=== PATIENT | female | born 1940 | race Caucasian/White ===

== ENCOUNTER 2017-05-02 01:04 | Emergency (ER) | payer MEDICARE ==
[2017-05-02] MEDS ORDERED: Nitroglycerin 0.4 MG Tab.SL SL PRN (01:15)
--- NOTE | 2017-05-02 01:17 | EDM.PDOC ---
ED HPI GENERAL MEDICAL PROBLEM - General Chief Complaint: Chest Pain Stated Complaint: MEDICAL VIA [facility] Time Seen by Provider: 05/02/17 01:15 Source of Information: Reports: Patient, RN Notes Reviewed History Limitations: Reports: No Limitations - History of Present Illness INITIAL COMMENTS - FREE TEXT/NARRATIVE: 76-year-old female presents emergency department today via EMS services for burning in the chest, she states she went to bed tonight and awoke with this burning in the chest EMS services were called she did receive aspirin in route. She states it's starting to improve she does admit to eating fried chicken before going to bed tonight. Positive cardiac history with coronary artery disease and vessel grafting 1 history of non-STEMI as well 2013 Upper Mid-Anterior Chest Pain Score (Numeric/FACES): 3 - Related Data Allergies Allergy/AdvReac Type Severity Reaction Status Date / Time Sulfa (Sulfonamide Allergy Intermediate Redness Verified 12/31/15 02:17 Antibiotics) Home Meds: Home Meds Sertraline HCl [Sertraline HCl] 25 mg PO DAILY 05/12/13 [History] Aspirin 325 mg PO DAILY 12/01/13 [History] Diazepam [Valium] 5 mg PO DAILY PRN 12/01/13 [History] Gemfibrozil [Lopid] 600 mg PO DAILY 12/01/13 [History] Metoprolol Succinate [Toprol XL 100mg] 100 mg PO DAILY 12/01/13 [History] amLODIPine [Norvasc] 5 mg PO DAILY 12/01/13 [History] Past Medical History HEENT History: Reports: Impaired Vision Cardiovascular History: Reports: Bypass (ROSARIO to LAD), CAD, Heart Valve Replacement, High Cholesterol, Hypertension, [place], Other (See Below) Other Cardiovascular History: rheumatic fever Musculoskeletal History: Reports: Osteoarthritis Neurological History: Reports: Migraines Psychiatric History: Reports: Anxiety, Depression, Other (See Below) Other Psychiatric History: ragile x syndrome Hematologic History: Reports: Blood Transfusion(s) - Infectious Disease History Infectious Disease History: Reports: Chicken Pox, Measles, Mumps, Shingles - Past Surgical History Cardiovascular Surgical History: Reports: Valve Replacement Social & Family History - Tobacco Use Smoking Status *Q: Former Smoker Years of Tobacco use: 37 Packs/Tins Daily: 0.5 Used Tobacco, but Quit: Yes Month Tobacco Last Used: September Second Hand Smoke Exposure: No - Caffeine Use Caffeine Use: Reports: Coffee, Soda - Alcohol Use Days Per Week of Alcohol Use: 0 - Recreational Drug Use Recreational Drug Use: No ED ROS GENERAL - Review of Systems Review Of Systems: See Below Constitutional: Reports: No Symptoms HEENT: Reports: No Symptoms Respiratory: Reports: No Symptoms Cardiovascular: Reports: Chest Pain GI/Abdominal: Reports: No Symptoms : Reports: No Symptoms Musculoskeletal: Reports: No Symptoms Skin: Reports: No Symptoms ED EXAM, GENERAL - Physical Exam Exam: See Below Free Text/Narrative:: General: Female, not in any distress, alert and oriented x3 HEENT: head is atraumatic normocephalic, eyes pupils equal round reactive to light, sclera clear no conjunctivitis appreciated. Ears tympanic membranes clear and dorsey landmarks and light reflex are present bilaterally canals are clear. Nose no septal deviation, nares are clear, no blood present. Mouth mucosa is moist and pink no erythema or exudate noted in soft palate, tongue is midline uvula is midline, dentition is intact. Neck: Supple no thyromegaly no tracheal deviation. Nodes: Cervical nodes subclavicular nodes nontender no palpable lymphadenopathy noted. Lungs: clear to auscultation bilaterally with symmetrical respirations, no adventitious noise appreciated. CV: Regular rate and rhythm S1 and S2 appreciated no murmurs rubs or gallops noted. Abdomen: Soft, nontender, no palpable masses or organomegaly appreciated, no distention no guarding bowel sounds are present, . Neuro: Cranial nerves II through XII grossly intact Skin: Warm and dry, intact Extremities: No lower extremity edema appreciated, Course - Vital Signs Last Recorded V/S: Last Vital Signs Temp 96.7 F 05/02/17 01:16 Pulse 68 05/02/17 04:59 Resp 18 05/02/17 04:59 BP 131/77 05/02/17 04:59 Pulse Ox 92 L 05/02/17 04:59 - Orders/Labs/Meds Orders: Active Orders 24 hr Category Date Time Status Cardiac Monitoring [RC] .As Directed Care 05/02/17 01:15 Active EKG Documentation Completion [RC] ASDIRECTED Care 05/02/17 01:16 Active Chest 1V Frontal [CR] Stat Exams 05/02/17 01:16 Taken Nitroglycerin [Nitrostat] Med 05/02/17 01:15 Active 0.4 mg SL Q5M PRN EKG 12 Lead [EK] Stat Ther 05/02/17 01:16 Ordered Medication Orders Nitroglycerin (Nitrostat) 0.4 mg SL Q5M PRN PRN Reason: Chest Pain Stop: 05/03/17 01:15 Last Admin: 05/02/17 01:28 Dose: 0.4 mg Labs: Laboratory Tests 05/02/17 05/02/17 05/02/17 Range/Units 01:15 01:15 03:26 WBC 6.5 (4.5-11.0) K/uL RBC 4.10 (3.30-5.50) M/uL Hgb 13.1 (12.0-15.0) g/dL Hct 37.8 (36.0-48.0) % MCV 92 (80-98) fL MCH 32 H (27-31) pg MCHC 35 (32-36) % Plt Count 227 (150-400) K/uL Neut % (Auto) 46 (36-66) % Lymph % (Auto) 38 (24-44) % [place] % (Auto) 9 H (2-6) % Eos % (Auto) 6 H (2-4) % Baso % (Auto) 1 (0-1) % Sodium 141 (140-148) mmol/L Potassium 3.6 (3.6-5.2) mmol/L Chloride 102 (100-108) mmol/L Carbon Dioxide 26 (21-32) mmol/L Anion Gap 12.7 (5.0-14.0) mmol/L BUN 28 H (7-18) mg/dL Creatinine 1.1 H (0.6-1.0) mg/dL Est Cr Clr Drug Dosing 40.99 mL/min Estimated GFR (MDRD) 48 L (>60) Glucose 139 H (74-106) mg/dL Calcium 8.7 (8.5-10.1) mg/dL Total Bilirubin 0.3 (0.2-1.0) mg/dL AST 22 (15-37) U/L ALT 27 (12-78) U/L Alkaline Phosphatase 90 (46-116) U/L CK-MB (CK-2) 1.0 (0-3.6) mg/mL Troponin I < 0.017 < 0.017 (0.000-0.056) ng/mL Total Protein 6.9 (6.4-8.2) g/dL Albumin 3.6 (3.4-5.0) g/dL Globulin 3.3 (2.3-3.5) g/dL Albumin/Globulin Ratio 1.1 L (1.2-2.2) Meds: Medications Generic Name Dose Route Start Last Admin Trade Name Freq PRN Reason Stop Dose Admin Nitroglycerin 0.4 mg 05/02/17 01:15 05/02/17 01:28 Nitrostat SL 05/03/17 01:15 0.4 mg Q5M PRN Administration Chest Pain Discontinued Medications Generic Name Dose Route Start Last Admin Trade Name Freq PRN Reason Stop Dose Admin Al Hydroxide/Mg Hydroxide 15 0 ml 05/02/17 01:16 05/02/17 01:24 ml/ Lidocaine HCl 15 ml PO 05/02/17 01:17 30 ml ONETIME ONE Administration Departure - Departure Time of Disposition: 05:45 Disposition: Home, Self-Care 01 Condition: Good Clinical Impression: Atypical chest pain Referrals: PCP,None [Primary Care Provider] - Forms: ED Department Discharge Additional Instructions: Continue regular medications, Please followup with your primary care provider in 3-5 days if not better, please call return to the emergency department with worsening of symptoms. - My Orders Last 24 Hours: My Active Orders 05/02/17 01:15 Cardiac Monitoring [RC] .As Directed Nitroglycerin [Nitrostat] 0.4 mg SL Q5M PRN 05/02/17 01:16 EKG Documentation Completion [RC] ASDIRECTED Chest 1V Frontal [CR] Stat EKG 12 Lead [EK] Stat - Assessment/Plan Last 24 Hours: My Active Orders 05/02/17 01:15 Cardiac Monitoring [RC] .As Directed Nitroglycerin [Nitrostat] 0.4 mg SL Q5M PRN 05/02/17 01:16 EKG Documentation Completion [RC] ASDIRECTED Chest 1V Frontal [CR] Stat EKG 12 Lead [EK] Stat Plan: Assessment Acuity = acute Site and laterality = atypical chest pain Etiology = suspicious for reflux Manifestations = none Location of injury = Home Lab values = CBC unremarkable creatinine elevated 1.1 consistent chronic renal failure stage GIII a, troponin negative 2, EKG demonstrates a left bundle branch block with first-degree block right axis deviation no ST elevations or depressions Plan I did review lab work EKG results with her she remained chest pain-free troponin was negative 2 received almost immediate relief with the GI cocktail follow-up with primary care 3-5 days if no improvement This note was dictated using [employer] voice recognition software please call with any questions on syntax or bear.
[2017-05-02] MEDS: Alum Hydrox/Mag Hydrox/Simeth 15 ML, Lidocaine 2% 15 ML PO ONE ×4 (01:21→01:24)
[2017-05-02 05:08] VITALS: BP 131/77
--- NOTE | 2017-05-04 09:22 | CR ---
Chest 1V Frontal INDICATION: Chest Pain FINDINGS: Comparison 05/02/2015. Sternotomy. Heart size is prominent. AP portable chest x-ray otherwis e negative.
== END 2017-05-02 06:11 | disposition home or self-care (01) ==
LOC: JP.ED 01:04
DX: R07.89 Other chest pain (principal); I12.9 Hypertensive chronic kidney disease with stage 1 through stage 4 chronic kidney disease, or unspecified chronic kidney disease; N18.3 Chronic kidney disease, stage 3 (moderate); I25.10 Atherosclerotic heart disease of native coronary artery without angina pectoris; F32.9 Major depressive disorder, single episode, unspecified; Z95.2 Presence of prosthetic heart valve; Z87.891 Personal history of nicotine dependence; Z79.82 Long term (current) use of aspirin; Z79.899 Other long term (current) drug therapy; Z88.2 Allergy status to sulfonamides
CPT/HCPCS: 36415; 71045; 80053; 82553; 84484; 85025; 93005; 99284; 99285; A9270; 93010

== ENCOUNTER 2020-02-04 21:30 | Emergency (ER) | payer MEDICARE ==
[2020-02-04] MEDS ORDERED: Silver Nitrate Applicator Each ONE (22:08)
[2020-02-04] MEDS ORDERED: Silver Nitrate Applicator Each TOP ONE (22:14)
[2020-02-04] MEDS ORDERED: Bacitracin Oint 1 GM U/D Packet TOP ONE (22:15)
--- NOTE | 2020-02-04 22:33 | EDM.PDOC ---
ED HPI GENERAL MEDICAL PROBLEM - General Chief Complaint: Wound Recheck Stated Complaint: BLEEEDING ON RIGHT CHEECK OVER AN HR Time Seen by Provider: 02/04/20 22:15 Source of Information: Reports: Patient, Old Records, RN History Limitations: Reports: No Limitations - History of Present Illness INITIAL COMMENTS - FREE TEXT/NARRATIVE: This 79 yo female presents with bleeding from a small wound in her R cheek that won't stop bleeding over the past 2 hrs. She is on ASA 325 mg daily. Thinks she felt a rough spot on her cheek and scratched at it and it started bleeding. Has tried pressure and ice without benefit. Onset: Today, Sudden Onset Date: 02/04/20 Onset Time: 20:20 Duration: Hour(s): (2), Constant Location: Reports: Face Quality: Reports: Other (no pain) Severity: Mild Improves with: Reports: None Worsens with: Reports: None Context: Reports: Other (See HPI) Associated Symptoms: Reports: No Other Symptoms Treatments DYNAMO TENDER: Reports: Other (see below) (See HPI) - Related Data Allergies Allergy/AdvReac Type Severity Reaction Status Date / Time Sulfa (Sulfonamide Allergy Intermediate Redness Verified 02/04/20 21:52 Antibiotics) Home Meds: Home Meds Sertraline HCl 25 mg PO DAILY 05/12/13 [History] Aspirin 325 mg PO DAILY 12/01/13 [History] Metoprolol Succinate [Toprol XL 100mg] 100 mg PO DAILY 12/01/13 [History] amLODIPine [Norvasc] 5 mg PO DAILY 12/01/13 [History] diazePAM [Valium] 5 mg PO DAILY PRN 12/01/13 [History] gemfibroziL [Lopid] 600 mg PO DAILY 12/01/13 [History] Latanoprost/Pf [Latanoprost 0.005% Eye Drop] 1 drop EYEBOTH BEDTIME 02/04/20 [History] Lisinopril/Hydrochlorothiazide [Lisinopril-Hctz 20-25 mg Tab] 1 tab PO DAILY 02/04/20 [History] Omeprazole 1 tab PO DAILY 02/04/20 [History] Past Medical History HEENT History: Reports: Impaired Vision Cardiovascular History: Reports: Bypass, CAD, Heart Valve Replacement, High Cholesterol, Hypertension, [place], Other (See Below) Other Cardiovascular History: rheumatic fever Gastrointestinal History: Reports: GERD, Other (See Below) Other Gastrointestinal History: excessive gas, occasional diarrhea Musculoskeletal History: Reports: Osteoarthritis Neurological History: Reports: Migraines Psychiatric History: Reports: Anxiety, Depression, Other (See Below) Other Psychiatric History: ragile x syndrome Hematologic History: Reports: Blood Transfusion(s) - Infectious Disease History Infectious Disease History: Reports: Chicken Pox, Measles, Mumps, Shingles - Past Surgical History Cardiovascular Surgical History: Reports: Valve Replacement Social & Family History - Tobacco Use Tobacco Use Status *Q: Never Tobacco User - Caffeine Use Caffeine Use: Reports: Coffee, Soda ED ROS GENERAL - Review of Systems Review Of Systems: See Below Constitutional: Reports: No Symptoms Skin: Reports: Wound (tiny wound R cheek w/steady bleeding.), Other (small te langiectasias of both cheeks. Likely the source of her bleeding.) Neurological: Reports: No Symptoms ED EXAM, SKIN/RASH Exam: See Below Exam Limited By: No Limitations General Appearance: Alert, WD/WN, No Apparent Distress Skin: Warm, Dry, Normal Color, No Rash, Wound/Incision (small telangiectasia on both cheeks, one on her R cheek is bleeding steadily. ) Location, Skin: Face (R cheek) Characteristics: Other (telangiectasia) Associated features: No: Warmth, Tenderness, Swelling, Induration, Scaling, Lymphangitis Course - Vital Signs Text/Narrative:: Cautery with silver nitrate stops the bleeding. Last Recorded V/S: Last Vital Signs Temp 36.4 C 02/04/20 22:02 Pulse 68 02/04/20 22:02 Resp 14 02/04/20 22:02 BP 175/84 H 02/04/20 22:02 Pulse Ox 94 L 02/04/20 22:02 - Orders/Labs/Meds Meds: Medications Discontinued Medications Generic Name Dose Route Start Last Admin Trade Name Freq PRN Reason Stop Dose Admin Bacitracin 1 dose 02/04/20 22:15 Bacitracin Oint 1 Gm TOP 02/04/20 22:16 ONETIME ONE Silver Nitrate Confirm 02/04/20 22:08 Silver Nitrate Administered 02/04/20 22:09 Dose 1 each .ROUTE .STK-MED ONE Silver Nitrate 1 each 02/04/20 22:14 02/04/20 22:19 Silver Nitrate TOP 02/04/20 22:15 1 each ONETIME ONE Administration Departure - Departure Time of Disposition: 22:33 Disposition: Home, Self-Care 01 Condition: Good Clinical Impression: Telangiectasia of face - Discharge Information *PRESCRIPTION DRUG MONITORING PROGRAM REVIEWED*: Not Applicable *COPY OF PRESCRIPTION DRUG MONITORING REPORT IN PATIENT RICH: Not Applicable Referrals: Trent Alonso MD [Primary Care Provider] - Additional Instructions: Leave this Bandage on a couple days, then remove and reapply Bacitracin and a new bandage. Keep covered as long as it takes to fully heal to prevent re- bleeding. Return as needed. Sepsis Event Note (ED) - Evaluation Sepsis Screening Result: No Definite Risk - Focused Exam Vital Signs: Vital Signs Temp Pulse Resp BP Pulse Ox 02/04/20 22:02 36.4 C 68 14 175/84 H 94 L
[2020-02-04 23:02] VITALS: BP 175/84; PULSE 68
== END 2020-02-04 22:43 | disposition home or self-care (01) ==
LOC: JP.ED 21:30
DX: I78.1 Nevus, non-neoplastic (principal); I10 Essential (primary) hypertension; I25.2 Old myocardial infarction; I25.10 Atherosclerotic heart disease of native coronary artery without angina pectoris; K21.9 Gastro-esophageal reflux disease without esophagitis; Z88.2 Allergy status to sulfonamides; Z79.82 Long term (current) use of aspirin; Z79.899 Other long term (current) drug therapy
CPT/HCPCS: 12011; 99282-25

== ENCOUNTER 2020-03-03 21:08 | Emergency (ER) | payer MEDICARE ==
[2020-03-03 21:13] VITALS: BP 178/84
[2020-03-03 21:28] VITALS: PULSE 75
[2020-03-03] MEDS ORDERED: cefTRIAXone 1 GM Vial IM ONE (21:43)
--- NOTE | 2020-03-03 22:00 | EDM.PDOC ---
ED HPI GENERAL MEDICAL PROBLEM - General Chief Complaint: Genitourinary Problem Stated Complaint: FEVER,CHILLS,UTI VIA NORTH Time Seen by Provider: 03/03/20 21:40 Source of Information: Reports: Patient, EMS History Limitations: Reports: No Limitations - History of Present Illness INITIAL COMMENTS - FREE TEXT/NARRATIVE: 79-year-old female seen in the clinic today and started on Macrodantin for UTI. While at home she developed a fever and shaking rigors which scared her so she called the ambulance. They resolved on the way to the hospital. She now feels back to baseline. She did take 1 dose of her antibiotic today, no nausea or vomiting. She has some dysuria but no back pain, no chest pain or shortness of breath. Onset: Sudden Associated Symptoms: Reports: Fever/Chills, Weakness, Other (Dysuria). Denies: Confusion, Chest Pain, Nausea/Vomiting, Shortness of Breath - Related Data Allergies Allergy/AdvReac Type Severity Reaction Status Date / Time Sulfa (Sulfonamide Allergy Intermediate Redness Verified 03/03/20 21:20 Antibiotics) Home Meds: Home Meds Sertraline HCl 25 mg PO DAILY 05/12/13 [History] Aspirin 325 mg PO DAILY 12/01/13 [History] Metoprolol Succinate [Toprol XL 100mg] 100 mg PO DAILY 12/01/13 [History] amLODIPine [Norvasc] 5 mg PO DAILY 12/01/13 [History] diazePAM [Valium] 5 mg PO DAILY PRN 12/01/13 [History] gemfibroziL [Lopid] 600 mg PO DAILY 12/01/13 [History] Latanoprost/Pf [Latanoprost 0.005% Eye Drop] 1 drop EYEBOTH BEDTIME 02/04/20 [History] Lisinopril/Hydrochlorothiazide [Lisinopril-Hctz 20-25 mg Tab] 1 tab PO DAILY 02/04/20 [History] Omeprazole 1 tab PO DAILY 02/04/20 [History] Nitrofurantoin Bennett/Macrocryst [Nitrofurantoin Bennett-MCR] 1 tab PO BID 03/03/20 [History] Past Medical History HEENT History: Reports: Impaired Vision Cardiovascular History: Reports: Bypass, CAD, Heart Valve Replacement, High Cholesterol, Hypertension, [place], Other (See Below) Other Cardiovascular History: rheumatic fever Gastrointestinal History: Reports: GERD, Other (See Below) Other Gastrointestinal History: excessive gas, occasional diarrhea Musculoskeletal History: Reports: Osteoarthritis Neurological History: Reports: Migraines Psychiatric History: Reports: Anxiety, Depression, Other (See Below) Other Psychiatric History: ragile x syndrome Hematologic History: Reports: Blood Transfusion(s) - Infectious Disease History Infectious Disease History: Reports: Chicken Pox, Measles, Mumps, Shingles - Past Surgical History Cardiovascular Surgical History: Reports: Valve Replacement Social & Family History - Tobacco Use Tobacco Use Status *Q: Never Tobacco User - Caffeine Use Caffeine Use: Reports: Coffee, Soda ED ROS GENERAL - Review of Systems Review Of Systems: See Below Constitutional: Reports: Fever, Chills, Malaise HEENT: Reports: No Symptoms Respiratory: Denies: Shortness of Breath Cardiovascular: Denies: Chest Pain GI/Abdominal: Denies: Abdominal Pain, Nausea, Vomiting Skin: Denies: Diaphoresis Neurological: Denies: Headache ED EXAM, GENERAL - Physical Exam Exam: See Below Exam Limited By: No Limitations General Appearance: Alert, No Apparent Distress Head: Atraumatic Respiratory/Chest: No Respiratory Distress, Lungs Clear Cardiovascular: Regular Rate, Rhythm. No: Tachycardia GI/Abdominal: Soft, Non-Tender Back Exam: No: CVA Tenderness (R), CVA Tenderness (L) Neurological: Alert, Oriented Psychiatric: Normal Affect, Normal Mood Skin Exam: Warm, Dry Course - Vital Signs Last Recorded V/S: Last Vital Signs Temp 98.8 F 03/03/20 21:27 Pulse 75 03/03/20 21:27 Resp 16 03/03/20 21:27 BP 178/84 H 03/03/20 21:27 Pulse Ox 98 03/03/20 21:27 - Orders/Labs/Meds Meds: Medications Discontinued Medications Generic Name Dose Route Start Last Admin Trade Name Freq PRN Reason Stop Dose Admin Ceftriaxone Sodium 1 gm 03/03/20 21:43 03/03/20 21:54 Rocephin IM 03/03/20 21:44 1 gm ONETIME ONE Administration - Re-Assessments/Exams Free Text/Narrative Re-Assessment/Exam: 03/04/20 00:16 Temperature is now normal, vitals are stable. She had no CVA percussion tenderness, likely just had some temporary bacteriuria. She was given 1 g of Rocephin IM to augment the Macrodantin she is on for her UTI and can return if worsening or concerns. Departure - Departure Time of Disposition: 22:18 Disposition: Home, Self-Care 01 Clinical Impression: UTI, Urinary tract infectious disease - Discharge Information Instructions: Urinary Tract Infection, Adult Referrals: Trent Alonso MD [Primary Care Provider] - Forms: ED Department Discharge Care Plan Goals: Continue your medications as prescribed including your antibiotic. Stay hydrated and return anytime if worsening or concerns. You may run intermittent fevers initially while your infection is responding to the antibiotics. Sepsis Event Note (ED) - Evaluation Sepsis Screening Result: No Definite Risk - Focused Exam Vital Signs: Vital Signs Temp Pulse Resp BP Pulse Ox 03/03/20 21:27 98.8 F 75 16 178/84 H 98 03/03/20 21:12 98.6 F 76 20 178/84 H 96
== END 2020-03-03 22:18 | disposition home or self-care (01) ==
LOC: JP.ED 21:08
DX: N39.0 Urinary tract infection, site not specified (principal); I25.10 Atherosclerotic heart disease of native coronary artery without angina pectoris; E78.00 Pure hypercholesterolemia, unspecified; I10 Essential (primary) hypertension; I25.2 Old myocardial infarction; K21.9 Gastro-esophageal reflux disease without esophagitis; M19.90 Unspecified osteoarthritis, unspecified site; F41.9 Anxiety disorder, unspecified; F32.9 Major depressive disorder, single episode, unspecified; Z88.2 Allergy status to sulfonamides; Z79.82 Long term (current) use of aspirin; Z79.899 Other long term (current) drug therapy
CPT/HCPCS: 96372; 99283; J0696

== ENCOUNTER 2023-12-08 10:00 | Inpatient (IN) | payer MEDICARE ==
[2023-12-08] MEDS: Ondansetron 4 MG/2 ML SDV IVPUSH ONE (10:58)
[2023-12-08] MEDS: Morphine 4 MG/ML Syringe IVPUSH PRN (10:59)
[2023-12-08] MEDS: Sodium Chloride 0.9% 10 ML Syringe FLUSH PRN (11:00)
[2023-12-08 11:04] LABS: HEMATOCRIT 33.5 % (34.3-46.0); HEMOGLOBIN 11.9 g/dL (11.2-15.5); MEAN CORPUSCULAR HGB CONC 35.5 g/dL (31.6-35.5); MEAN CORPUSCULAR VOLUME 90.1 fL (81.4-99.0); RED BLOOD CELL COUNT 3.72 M/uL (3.77-5.24); WHITE BLOOD CELL COUNT,WBC 7.3 K/uL (3.2-11.0)
[2023-12-08 11:26] LABS: ALANINE AMINOTRANSFERASE,ALT 18 U/L (12-78); ALBUMIN 3.6 g/dL (3.4-5.0); ALKALINE PHOSPHATASE 88 U/L (46-116); ASPARTATE AMNIOTRANSFERASE,AST 22 U/L (15-37); BILIRUBIN TOTAL 0.5 mg/dL (0.2-1.0); BLOOD UREA NITROGEN,BUN 16 mg/dL (7-18); CALCIUM 8.6 mg/dL (8.5-10.1); CARBON DIOXIDE,CO2 28 mmol/L (21-32); CHLORIDE,CL 97 mmol/L (100-108); ESTIMATED GFR 56 mL/min (>60); GLUCOSE RANDOM 132 mg/dL (74-106); POTASSIUM,K 3.2 mmol/L (3.6-5.2); PROTEIN TOTAL,TP 7.3 g/dL (6.4-8.2); SODIUM,NA 135 mmol/L (140-148); TROPONIN I HIGH SENSITIVITY 13.3 pg/mL (<=60.3)
[2023-12-08 11:29] LABS: PROTHROMBIN TIME 10.6 sec (9.2-10.6); PTT,PARTIAL THROMBOPLSTIN TIME 23.9 sec (21.8-27.3)
[2023-12-08 11:35] LABS: ANION GAP 13.2 mmol/L (5.0-14.0)
[2023-12-08] MEDS: droPERidol 5 MG/2 ML SDV IVPUSH ONE (11:59)
[2023-12-08] MEDS: Iopamidol 612 MG/ML 100 ML Bottle IV PRN (12:42)
[2023-12-08] MEDS: Sodium Chloride 0.9% 100 ML IV SCH (12:42)
[2023-12-08] MEDS: Sodium Chloride 0.9% 10 ML Syringe FLUSH ONE (12:43)
[2023-12-08] MEDS: Nitroglycerin/D5W 25 MG/250 ML BOTTLE IV SCH (13:00)
[2023-12-08] MEDS: HYDROmorphone 1 MG/ML Syringe IVPUSH ONE ×2 (13:37→15:06)
[2023-12-08] MEDS ORDERED: Sodium Chloride 0.9% 10 ML Syringe FLUSH PRN (19:38)
[2023-12-08] MEDS ORDERED: Ondansetron 4 MG/2 ML SDV IV PRN (19:38)
[2023-12-08] MEDS ORDERED: Nitroglycerin/D5W 25 MG/250 ML BOTTLE IV SCH (19:38)
[2023-12-08] MEDS ORDERED: Polyethylene Glycol 3350 Powder 17 GM Packet PO PRN (19:38)
[2023-12-08] MEDS: hydrALAZINE 20 MG/ML SDV IVPUSH PRN (20:05)
[2023-12-08] MEDS: Latanoprost 0.005% Ophth Soln 2.5 ML Bottle EYEBOTH SCH (21:02)
[2023-12-09] MEDS: Acetaminophen 325 MG Tab PO PRN (01:09)
[2023-12-09] MEDS: Pantoprazole 40 MG Tab.CR PO SCH (07:37)
[2023-12-09] MEDS: Sertraline 25 MG Tab PO SCH (09:17)
[2023-12-09] MEDS: Metoprolol Succinate 50 MG Tab.ER PO SCH (09:17)
[2023-12-09] MEDS: Lisinopril 20 MG Tab PO SCH (09:18)
[2023-12-09] MEDS: Hydrochlorothiazide 25 MG Tab PO SCH (09:18)
[2023-12-09] MEDS: Morphine 10 MG/0.5 ML Oral Syringe BUCCAL PRN (09:55)
[2023-12-09] MEDS: hydrALAZINE 10 MG Tab PO SCH (12:08)
[2023-12-09] MEDS: Mometasone Furoate Nasal Spray 17 GM Canister NAS SCH (12:09)
[2023-12-09] MEDS: Fluconazole 150 MG Tab PO ONE (12:09)
[2023-12-09] MEDS: Cyclobenzaprine 10 MG Tab PO PRN (12:10)
[2023-12-09] MEDS: Nitroglycerin/D5W 25 MG/250 ML BOTTLE IV SCH (17:51)
[2023-12-09] MEDS: Morphine 4 MG/ML Syringe IVPUSH ONE (19:18)
[2023-12-10] MEDS ORDERED: hydrALAZINE 10 MG Tab PO ONE (09:45)
[2023-12-10] MEDS: hydrALAZINE 10 MG Tab PO SCH (09:50)
[2023-12-10] MEDS ORDERED: hydrALAZINE 10 MG Tab PO SCH (12:00)
[2023-12-10] MEDS: oxyCODONE 5 MG Tab PO PRN (19:06)
[2023-12-11] MEDS: Metoprolol Succinate 50 MG Tab.ER PO SCH (08:43)
[2023-12-11] MEDS: LORazepam ORAL Concentrate 1MG/0.5ML U/D PO PRN (09:16)
[2023-12-11] MEDS: hydrALAZINE 25 MG Tab PO SCH (09:20)
[2023-12-12] MEDS: NIACIN 250 MG PO SCH (08:02)
[2023-12-12] MEDS: WOMEN S PROBIOTIC PO SCH (08:03)
[2023-12-12] MEDS: [UNRECOGNIZED DRUG - OTHER] PO SCH (08:03)
[2023-12-12] MEDS: D RIBOSE PO SCH (08:04)
[2023-12-12] MEDS: [UNRECOGNIZED DRUG - OTHER] PO SCH (08:04)
[2023-12-12] MEDS: [UNRECOGNIZED DRUG - OTHER] PO SCH (08:05)
[2023-12-12] MEDS: [UNRECOGNIZED DRUG - OTHER] PO SCH (08:07)
[2023-12-12] MEDS: Lisinopril 20 MG Tab PO SCH (08:40)
[2023-12-12] MEDS: hydrALAZINE 10 MG Tab PO SCH (10:18)
[2023-12-12] MEDS ORDERED: LORazepam ORAL Concentrate 1MG/0.5ML U/D PO PRN (17:13)
[2023-12-12] MEDS: LORazepam ORAL Concentrate 1MG/0.5ML U/D BUCCAL ONE (17:26)
[2023-12-12] MEDS: Morphine 10 MG/0.5 ML Oral Syringe BUCCAL ONE (17:28)
[2023-12-13] MEDS: Morphine 10 MG/0.5 ML Oral Syringe BUCCAL PRN (04:09)
[2023-12-13] MEDS: Albuterol 0.083% 2.5 MG/3 ML Neb Soln NEB PRN (16:45)
[2023-12-15] MEDS: hydrALAZINE 10 MG Tab PO SCH (14:38)
[2023-12-15] MEDS: hydrALAZINE 25 MG Tab PO SCH (14:38)
[2023-12-15] MEDS ORDERED: LORazepam 0.5 MG Tab PO PRN (17:33)
[2023-12-15] MEDS: guaiFENesin/Dextromethorphan 100-10 MG/5 ML Soln 10 ML Cup PO PRN (17:36)
[2023-12-15] MEDS: Albuterol 0.083% 2.5 MG/3 ML Neb Soln NEB PRN (17:37)
[2023-12-16 10:33] VITALS: BP 149/89; PULSE 94
== END 2023-12-16 10:48 | disposition hospice, home (50) | DRG 951 ==
LOC: JP.ED 10:00 → JP.ICU 16:18
PROVIDERS: ADMIT Hospitalist; ATTEND Internal Medicine
DX: I71.010 Dissection of ascending aorta (principal); Z51.5 Encounter for palliative care; I71.02 Dissection of abdominal aorta; I71.019 Dissection of thoracic aorta, unspecified; I10 Essential (primary) hypertension; I25.10 Atherosclerotic heart disease of native coronary artery without angina pectoris; Z66 Do not resuscitate; E78.00 Pure hypercholesterolemia, unspecified; Z88.0 Allergy status to penicillin; F32.A Depression, unspecified; I25.2 Old myocardial infarction; F41.9 Anxiety disorder, unspecified; G43.909 Migraine, unspecified, not intractable, without status migrainosus; K21.9 Gastro-esophageal reflux disease without esophagitis; Z88.2 Allergy status to sulfonamides; Z95.2 Presence of prosthetic heart valve; M19.90 Unspecified osteoarthritis, unspecified site; Z79.82 Long term (current) use of aspirin; Z79.899 Other long term (current) drug therapy; Z87.891 Personal history of nicotine dependence
CPT/HCPCS: 36415; 71045 ×2; 71275 ×2; 80053; 82271; 83605; 84484; 85027; 85379; 85610; 85730; 93005; 93010; 96365; 96366; 96375; 96376; 99285 ×2; J1170 ×2; J1790; J2270 ×2; J2305; J2405; J3490 ×3; Q9967; U0002; 94640; 99223; 99232; 99233; 99239; A9270-GY; J0360